=== PATIENT | female | born 1955 | race Hispanic/Latino ===

== ENCOUNTER 2017-07-19 23:16 | Emergency (ER) | payer MEDICARE ==
[~2017-07-19] VITALS: Ht 149.9 cm; Wt 74.8 kg
--- OUTSIDE RECORDS SUMMARY | 2017-07-19 23:17 | XMS REPORT | Clinical Summary ---
Author Author [facility] Address Unknown Phone Unavailable Care Team Providers Care Manager Database Name Role Phone PCP Unavailable Allergies No Known Allergies Current Medications Prescription Sig. Disp. Refills Start End Date Status Date ergocalciferol (VITAMIN Take 50,000 Units by Active D2) 50,000 unit capsule mouth once a week. hydroCHLOROthiazide Take 12.5 mg by mouth Active (MICROZIDE) 12.5 mg daily. capsule Active Problems Problem Noted Date Urinary frequency 06/19/2016 Social History Tobacco Use Types Packs/Day Years Used Date Never Smoker Smokeless Tobacco: Never Used Alcohol Use Drinks/Week oz/Week Comments No Sex Assigned at Date Recorded Not on file Last Filed Vital Signs Not on file Plan of Treatment Not on file Implants Implanted Type Area Gold Reclaimer Device Expiration Model / Identifier Date Serial / Lot Sys Advntg Fit 850-211 - [id number] Urology N/A: ALINE 03/06/2019 850-211 / Implanted: Qty: 1 on 06/19/2016 by [employer] / Nawaf Aparicio MD ECOLOGY [id number] Results Not on fileafter 07/18/2016
[2017-07-20] MEDS ORDERED: FAMOTIDINE 20 MG/2 ML VIAL IV STA (00:28)
[2017-07-20] MEDS ORDERED: ONDANSETRON HCL INJ 2 MG/ML VIAL IV STA (00:28)
[2017-07-20] MEDS ORDERED: SODIUM CHLORIDE 0.9% 1000ML 1,000 ML IV SCH (00:30)
[2017-07-20] MEDS ORDERED: FENTANYL CITRATE/PF 100MCG/2 ML INJ IV ONE (00:30)
[2017-07-20] MEDS ORDERED: PANTOPRAZOLE 40 MG 10ML VIAL IV STA (00:43)
[2017-07-20 02:39] VITALS: BP 136/64
== END 2017-07-20 02:35 | disposition home or self-care (01) ==
LOC: FSED 23:16
DX: R10.11 Right upper quadrant pain (principal); R10.13 Epigastric pain; R11.2 Nausea with vomiting, unspecified; I10 Essential (primary) hypertension
CPT/HCPCS: 71046; 74174; 80053; 81003; 82553; 84484; 85025; 87400; 93005; 99284; J2405

== ENCOUNTER 2017-10-02 11:41 | Emergency (ER) | payer MEDICARE ==
[~2017-10-02] VITALS: Ht 149.9 cm; Wt 70.3 kg
[2017-10-02] MEDS ORDERED: VITAMIN D10000 UNIT (12:33)
[2017-10-02] MEDS ORDERED: ONDANSETRON HCL INJ 2 MG/ML VIAL IV STA (12:46)
[2017-10-02] MEDS ORDERED: DONNATAL/LIDOCAINE/MAALOX 30 ML SUSP PO ONE (13:00)
[2017-10-02] MEDS ORDERED: SODIUM CHLORIDE 0.9% 1000ML 1,000 ML IV SCH (13:00)
[2017-10-02] MEDS ORDERED: LOMOTIL TABLET1 EACH PO (13:54)
[2017-10-02] MEDS ORDERED: ZOFRAN ODT4 MG SL (13:54)
== END 2017-10-02 14:25 | disposition home or self-care (01) ==
LOC: FSED 11:41
DX: R10.13 Epigastric pain (principal); R11.2 Nausea with vomiting, unspecified; R19.7 Diarrhea, unspecified; K29.00 Acute gastritis without bleeding
CPT/HCPCS: 74177; 80053; 81003; 85025; 99284; J2405

== ENCOUNTER 2020-10-14 04:54 | Emergency (ER) | payer MEDICARE ==
[~2020-10-14] VITALS: Ht 149.9 cm; Wt 71.2 kg
[~2020-10-14 04:54] MED LIST: LOMOTIL TABLET1 EACH PO; VITAMIN D10000 UNIT; ZOFRAN ODT4 MG SL
[2020-10-14 05:32] LABS: BASOPHILS # (AUTO) 0.1 (0.0-0.1); BASOPHILS % 0.8 % (0.0-1.0); EOSINOPHILS # (AUTO) 0.2 (0.0-0.4); EOSINOPHILS % 2.8 % (0.0-6.0); HEMATOCRIT 40.2 % (34.2-44.1); HEMOGLOBIN 13.8 g/dL (12.0-16.0); LYMPHOCYTES # (AUTO) 2.9 (1.0-3.2); LYMPHOCYTES % 40.4 % (18.0-39.1); MEAN CORPUSCULAR HEMOGLOBIN 32.5 pg (28-32); MEAN CORPUSCULAR HGB CONC 34.3 g/dL (31-35); MEAN CORPUSCULAR VOLUME 94.8 fL (81-99); MONOCYTES # (AUTO) 0.7 (0.2-0.8); MONOCYTES % 9.7 % (4.4-11.3); NEUTROPHILS # (AUTO) 3.3 (2.1-6.9); NEUTROPHILS % 45.7 % (38.7-80.0); PLATELET COUNT 197 x10e3/uL (140-360); RED BLOOD COUNT 4.24 x10e6/uL (3.6-5.1); RED CELL DISTRIBUTION WIDTH 11.5 % (11.7-14.4)
[2020-10-14] MEDS ORDERED: SODIUM CHLORIDE 0.9% 1000ML 1,000 ML IV STA ×2 (05:33→06:51)
[2020-10-14 05:59] LABS: ALBUMIN/GLOBULIN RATIO 1.1 (0.8-2.0); CALCIUM 9.4 mg/dL (8.4-10.2); CREATININE, SERUM 0.9 mg/dL (0.57-1.11)
[2020-10-14 07:15] LABS: CLARITY,URINE CLEAR (CLEAR); COLOR,URINE YELLOW (YELLOW)
[2020-10-14 07:16] LABS: KETONES,URINE NEGATIVE (NEGATIVE); LEUKOCYTE ESTERASE ,URINE TRACE (NEGATIVE); NITRITE,URINE NEGATIVE (NEGATIVE); PROTEIN,URINE DIPSTICK NEGATIVE (NEGATIVE); URINE UROBILINOGEN 0.2 mg/dL (0.2 - 1)
[2020-10-14 07:33] LABS: BACTERIA,URINE FEW /HPF; EPITHELIAL CELLS,URINE FEW /LPF; RBC,URINE 0-5 /HPF (0-5); RENAL EPITHELIAL CELLS,URINE MODERATE
[2020-10-14 07:34] LABS: CALCIUM OXALATE CRYSTALS,UR MODERATE (FEW)
== END 2020-10-14 08:26 | disposition home or self-care (01) ==
LOC: ER 05:33
DX: E11.65 Type 2 diabetes mellitus with hyperglycemia (principal); N39.0 Urinary tract infection, site not specified; I10 Essential (primary) hypertension
CPT/HCPCS: 36415; 80053; 81001; 82948; 85025; 87086; 99284; J7030